=== PATIENT | male | born 1990 | race Caucasian/White ===

== ENCOUNTER 2018-07-31 12:55 | Inpatient (IN) ==
--- NOTE | 2018-07-31 15:09 | P.PNPSY ---
This serves as a mlom-of-qlud for restraints. Patient is seen at 1315. This patient who presents as a Glenn King was seen at the request of RN while in the process of being registered. He is here under a police initiated Kay act. Patient is agitated, talking in a nonsensical manner, able to answer questions when he is asked to do so, making threatening gestures with his hands. It is felt that the patient is a threat to others and therefore restraints are ordered. Unable to proceed with psychiatric evaluation at this time.
--- NOTE | 2018-07-31 16:36 | P.PNPSY ---
Patient remains in restraints. he was uncooperative with letting staff obtain labwork and was spitting at RN. When I attempted to interview him he staes " are you the creator?". He then begins to speak in nonsensical manner. He becomes angry and verbally threatening towards data analyst report writer. He did give his name as Rajat Marcus and admits to having used " tobacco " today. Agnieszkan requires medication at this time for threatening behavior as well as psychosis.
--- NOTE | 2018-07-31 17:30 | ED ---
HPI General Chief complaint: Psychiatric Symptoms Stated complaint: Psych Eval/OBPD Time Seen by Provider: 07/31/18 17:13 History of Present Illness HPI narrative: Male is brought to the emergency department under Kay act for psychiatric evaluation. Patient is brought in as a Glenn Malik, appears approximately 32 years old. Patient initially noted to be psychotic and aggressive with staff, he was placed in restraints prior to my evaluation and given medication by the psychologist military personnel. Patient is now calm. He states his name is Rajat Marcus. He does not answer my question when I asked him what happened today. He states he is aware he is somewhere in [place]. He states he is not sure what year it is. He denies any medical conditions. When I continue questioning he becomes irritated and states "can you leave me alone and unleashed me and give me some food now." Related Data Home Medications Medication Instructions Recorded Confirmed No Known Home Medications 07/31/18 07/31/18 Allergies Allergy/AdvReac Type Severity Reaction Status Date / Time No Known Allergies Allergy Verified 07/31/18 14:29 Review of Systems ROS: all other systems reviewed are negative [facility] Social History Social History Substance History: Unable to Obtain Smoking Status: Refused to answer How Often Do You Have a Drink Containing Alcohol: Unable to Obtain Recent Travel in [facility] within the Last 8 Weeks: No Recent Out of Country Travel within the Last 8 Weeks: No Immunization History Tetanus Immunization: Unsure Exam Narrative Exam Narrative: GENERAL: Well-nourished and well-developed male patient in no acute distress. Restrained to bed with left arm and right leg. SKIN: Warm and dry without any obvious rashes or lesions. HEAD: Normocephalic and atraumatic. EYES: No injection, drainage, or hyphema noted. PERRLA. EOMI. ENT: No nasal drainage noted. Oropharynx is clear and the TMs are normal with good landmarks. NECK: Supple and the trachea is midline. CARDIOVASCULAR: Regular rate and rhythm. RESPIRATORY: Breath sounds are equal bilaterally with no accessory muscle use, wheezing, rhonchi, or crackles. GASTROINTESTINAL: Abdomen is soft, non-tender, and nondistended. MUSCULOSKELETAL: No obvious deformities, swelling, cyanosis, or ecchymosis is present throughout the upper and lower extremities. Patient has full range of motion without any signs of neurovascular compromise. Distal pulses are 2+ throughout. NEUROLOGICAL: Awake, alert, and oriented to person and place. Normal speech and gait. Cranial nerves are grossly intact. Course Initial Documented Vital Signs Pulse Rate 76 07/31/18 13:07 Respiratory Rate 20 07/31/18 13:07 Blood Pressure 137/90 07/31/18 13:07 Pulse Oximetry 99 07/31/18 13:07 Last Documented Vital Signs Temperature 97.0 F L 07/31/18 18:08 Pulse Rate 80 07/31/18 18:08 Respiratory Rate 18 07/31/18 18:08 Blood Pressure 142/83 H 07/31/18 18:08 Pulse Oximetry 99 07/31/18 18:08 Medical Decision Making MDM Narrative Medical decision making narrative: Patient presents under a Kay act for psychotic behavior. Patient is somewhat altered, unclear whether this is due to psychosis or drug use or other metabolic illness. Vitals are within normal limits. Will check head CT and lab work. Psych screen has been ordered. Labs are unremarkable as well as head CT. Urine tox is pending. The patient is medically cleared for psychiatric evaluation and disposition. Medical Screen Exam Complete: Yes Emergency Medical Condition: Yes Differential Diagnosis Differential Diagnosis: Differential: Depression versus adjustment reaction versus anxiety versus PTSD versus psychosis NOS versus mood disorder NOS versus substance induced mood disorder versus ODD versus adjustment reaction versus schizophrenia versus bipolar disorder versus schizoaffective versus electrolyte abnormality versus dementia versus malingering. Lab Data Result diagrams: 07/31/18 16:50 07/31/18 16:50 Lab Results 07/31/18 07/31/18 07/31/18 Range/Units 16:50 16:50 18:30 WBC 8.9 (4.0-11.0) th/mm3 RBC 4.84 (4.50-5.90) mil/mm3 Hgb 15.3 (13.0-17.0) gm/dL Hct 42.9 (39.0-51.0) % MCV 88.7 (80.0-100.0) fL MCH 31.7 (27.0-34.0) pg MCHC 35.7 (32.0-36.0) % RDW 13.4 (11.6-17.2) % Plt Count 162 (150-450) th/mm3 MPV 10.8 (7.0-11.0) fL Sodium 144 (136-145) meq/L Potassium 4.4 (3.5-5.1) meq/L Chloride 112 H (98-107) meq/L Carbon Dioxide 27.4 (21.0-32.0) meq/L Anion Gap 5 (5-15) meq/L BUN 12 (7-18) mg/dL Creatinine 0.83 (0.60-1.30) mg/dL Estimated GFR 80 L (>89) mL/min Random Glucose 81 (74-106) mg/dL Calcium 8.7 (8.5-10.1) mg/dL Total Bilirubin 0.6 (0.2-1.0) mg/dL AST 14 L (15-37) U/L ALT 24 (12-78) U/L Alkaline Phosphatase 76 (45-117) U/L Total Protein 6.6 (6.4-8.2) g/dL Albumin 3.8 (3.4-5.0) g/dL Urine Color (Yellw/Straw) Urine Clarity (Clear) Urine pH (5.0-8.5) Ur Specific [place] (1.002-1.035) Urine Protein (Neg-Trace) mg/dL Urine Glucose (UA) (Negative) mg/dL Urine Ketones (Negative) mg/dL Urine Occult Blood (Negative) Urine Nitrate (Negative) Urine Bilirubin (Negative) Urine Urobilinogen (Less than 2) mg/dL Ur Leukocyte Esterase (Negative) Urine RBC (0-3) /hpf Urine WBC (0-5) /hpf Urine Mucus (Occasional) /lpf Micro UA Comment Ur Microscopic Review Urine Culture Comments Urine Opiates Screen Neg (Neg) Ur Barbiturates Screen Neg (Neg) Ur Amphetamines Screen Neg (Neg) U Benzodiazepines Scrn Neg (Neg) Urine Cocaine Screen Neg (Neg) U Cannabinoids Screen Pos H (Neg) Serum Alcohol Less than 3 (0-5) mg/dL 07/31/18 Range/Units 18:30 WBC (4.0-11.0) th/mm3 RBC (4.50-5.90) mil/mm3 Hgb (13.0-17.0) gm/dL Hct (39.0-51.0) % MCV (80.0-100.0) fL MCH (27.0-34.0) pg MCHC (32.0-36.0) % RDW (11.6-17.2) % Plt Count (150-450) th/mm3 MPV (7.0-11.0) fL Sodium (136-145) meq/L Potassium (3.5-5.1) meq/L Chloride (98-107) meq/L Carbon Dioxide (21.0-32.0) meq/L Anion Gap (5-15) meq/L BUN (7-18) mg/dL Creatinine (0.60-1.30) mg/dL Estimated GFR (>89) mL/min Random Glucose (74-106) mg/dL Calcium (8.5-10.1) mg/dL Total Bilirubin (0.2-1.0) mg/dL AST (15-37) U/L ALT (12-78) U/L Alkaline Phosphatase (45-117) U/L Total Protein (6.4-8.2) g/dL Albumin (3.4-5.0) g/dL Urine Color Yellow (Yellw/Straw) Urine Clarity Clear (Clear) Urine pH 6.0 (5.0-8.5) Ur Specific [place] 1.011 (1.002-1.035) Urine Protein Negative (Neg-Trace) mg/dL Urine Glucose (UA) Negative (Negative) mg/dL Urine Ketones Trace H (Negative) mg/dL Urine Occult Blood Negative (Negative) Urine Nitrate Negative (Negative) Urine Bilirubin Negative (Negative) Urine Urobilinogen Less than 2 (Less than 2) mg/dL Ur Leukocyte Esterase Negative (Negative) Urine RBC Less than 1 (0-3) /hpf Urine WBC 1 (0-5) /hpf Urine Mucus Few H (Occasional) /lpf Micro UA Comment Culture not ind Ur Microscopic Review Not Reportable Urine Culture Comments Culture not ind Urine Opiates Screen (Neg) Ur Barbiturates Screen (Neg) Ur Amphetamines Screen (Neg) U Benzodiazepines Scrn (Neg) Urine Cocaine Screen (Neg) U Cannabinoids Screen (Neg) Serum Alcohol (0-5) mg/dL Imaging Data Radiologist's impression: Head CT 07/31/18 17:30 CONCLUSION: No acute intracranial findings. . Discharge Plan Discharge Disposition Patient Disposition: Sign Out(ED Internal Use Only) Discharge Details Diagnosis: Acute psychosis Physicians Team ED Provider: Kamar Morrow ED Midlevel Provider: Sabiha Newman Primary Care Provider: UNKNOWN, Rxs /Orders / Referrals /Forms Prescriptions: No Action No Known Home Medications RF: 0 Status ED Status: Medically Cleared
[2018-07-31 17:42] LABS: Hematocrit 42.9 % (39.0-51.0); Hemoglobin 15.3 gm/dL (13.0-17.0); Mean Corpuscular HGB Conc 35.7 % (32.0-36.0); Mean Corpuscular Hemoglobin 31.7 pg (27.0-34.0); Mean Corpuscular Volume 88.7 fL (80.0-100.0); Mean Platelet Volume 10.8 fL (7.0-11.0); Platelet Count 162 th/mm3 (150-450); Red Blood Count 4.84 mil/mm3 (4.50-5.90); Red Cell Distribution Width 13.4 % (11.6-17.2); White Blood Count 8.9 th/mm3 (4.0-11.0)
[2018-07-31 17:59] LABS: Alanine Aminotransferase 24 U/L (12-78); Albumin 3.8 g/dL (3.4-5.0); Anion Gap 5 meq/L (5-15); Aspartate Aminotransferase 14 U/L (15-37); Blood Urea Nitrogen 12 mg/dL (7-18); Calcium 8.7 mg/dL (8.5-10.1); Carbon Dioxide 27.4 meq/L (21.0-32.0); Chloride 112 meq/L (98-107); Glomerular Filtration Rate 80 mL/min (>89); Glucose,Random 81 mg/dL (74-106); Potassium 4.4 meq/L (3.5-5.1); Sodium 144 meq/L (136-145)
[2018-07-31 18:02] LABS: Alkaline Phosphatase 76 U/L (45-117); Total Protein 6.6 g/dL (6.4-8.2)
--- NOTE | 2018-07-31 18:25 | CT ---
EXAM DATE: 07/31/2018 6:21 PM EST AGE/SEX: 89 years / Male INDICATIONS: Altered mental status. CLINICAL DATA: This is the patient's initial encounter. Patient reports that signs and symptoms have been present for 1 day and indicates a pain score of Nonresponsive. MEDICAL/SURGICAL HISTORY: None. None. RADIATION DOSE: 46.51 CTDI (mGy) COMPARISON: No prior exams available for comparison. TECHNIQUE: CT of the head without contrast. Using automated exposure control and adjustment of the mA and/or kV according to patient size, radiation dose was kept as low as reasonably achievable to ob tain optimal diagnostic quality images. DICOM format image data is available electronically for revi ew and comparison. FINDINGS: Cerebrum: The ventricles are normal for age. No evidence of midline shift, mass lesion, hemorrhage or acute infarction. No extraaxial fluid collections are seen. Posterior Fossa: The cerebellum and brainstem are intact. The 4th ventricle is midline. The cerebe llopontine angle is unremarkable. Extracranial: The visualized portion of the orbits is intact. Skull: The calvaria is intact. No evidence of skull fracture. CONCLUSION: No acute intracranial findings. . Electronically signed by: Ibrahima Tucker MD Board Certified Radiologist 07/31/2018 6:24 PM EST
[2018-07-31 18:51] LABS: Bilirubin,Urine Negative (Negative); Clarity,Urine Clear (Clear); Color,Urine Yellow (Yellw/Straw); Glucose,Urine (UA) Negative (Negative); Leukocyte Esterase,Urine Negative (Negative); Mucus,Urine Few /lpf (Occasional); Nitrite,Urine Negative (Negative); Specific Gravity,Urine 1.011 (1.002-1.035)
[2018-07-31 18:55] LABS: Amphetamine Screen,Urine Neg (Neg); Barbiturate Screen,Urine Neg (Neg); Cannabinoid Screen,Urine Pos (Neg); Cocaine Screen,Urine Neg (Neg)
[2018-07-31 18:56] LABS: Opiate Screen,Urine Neg (Neg)
[2018-08-01] MEDS ORDERED: Aluminum/Magnesium/Simethacone Susp 30 ML UDC PO PRN (11:33)
[2018-08-01] MEDS ORDERED: Acetaminophen 325 MG Tablet PO PRN (11:33)
--- NOTE | 2018-08-01 11:56 | P.HPPSY ---
Provisional Diagnosis Admission Date: July 31, 2018 12:55 [place] I.: Psychotic disorder, marijuana abuse Competence Certification of Person's Competence To Provide Express and Informed Consent I have personally examined Glenn Tai, a person being served at [facility] on, August 01, 2018 1141. Express and informed consent means consent voluntarily given in writing, by a competent person, after sufficient explanation and disclosure of the subject matter involved to enable the person to make a knowing and willful decision without any element of force, fraud, deceit, duress, or other form of constraint or coercion. This person is 18 years of age or older, is not now known to be incompetent to consent to treatment with a guardian advocate, and does not have a health care surrogate or proxy currently making medical treatment decisions. I have found this person to be one of the following: [] Competent to provide express and informed consent, as defined above, for voluntary admission to this facility and is competent to provide express and informed consent for treatment. He/she has the consistent capacity to make well reasoned, willful, and knowing decisions concerning his or her medical or mental health treatment. The person fully and consistently understands the purpose of the admission for examination/placement and is fully capable of personally exercising all rights assured [place] [] Incompetent to provide express and informed consent to voluntary admission, and this is incompetent to provide express and informed consent to treatment. The person must be transferred to involuntary status and a petition for a guardian advocate filed with the Circuit Court. [xxx] Refusing to provide express and informed consent to voluntary admission but is competent to provide express and informed consent for treatment. The person must be discharged or transferred to involuntary status. Form shall be completed within 24 hours of a person's arrival at the receiving facility and filed in the clinical record of each person: 1. Admitted on a voluntary basis 2. Permitted to provide express and informed consent to his/her own treatment 3. Allowed to transfer from involuntary to voluntary status 4. Prior to permitting a person to consent to his or her own treatment after having been previously found incompetent to consent to treatment. History of Present Illness Capacity: Lacks capacity (Patient lacks capacity to sign for admission patient has capacity to sign for medication treatment) History of Present Illness: Patient is a 32-year-old white male comes here is a Glenn cipriano and 184 under Kay act by the [place] [employer] dated 07/31/2018 at 12:30 PM that document reviewed states Glenn magdaleno walked into [place] and told the judge's clerk he was going to blow her head off. Glenn though then told another officer he was going to punch her. Then he was going to kill people. Glenn though then stated he is a God. Patient is seen and screened in the ED urine toxicology only positive for marijuana while in the ED patient needed to be in restraints to his out of control behavior to the point where he was spitting at the nurses. Patient is seen by me and Clarence santillan along with nurse Ngozi and floor staff. He is labile irritable angry and profane quite manipulative and entitled. Showing no responsibility for behavior or verbalizations done in the community. He is quite vague and evasive about past psychiatric history Shannan does acknowledge a prior psychiatric history out of the [facility]. He is vague about other travel she may have had in his life including to [place]. He acknowledges marijuana use but refuses to discuss any other chemical use though his toxicology was only positive for marijuana there may have been some other type of game designer/creative director drug use involved with this gentleman. He denies to give any information related to family history legal history other past psychiatric history. However at this time patient does meet criteria for further inpatient psychiatric hospitalization under the Kay act I feel there is a high risk of this man becoming violent he is quite threatening and labile with us and myself telling me to "fuck off" thus I will do first opinion request second opinion. Will refrain from any psychotropic medication at the present time refrain from benzodiazepines or opiates if at all possible and observe to see if there is might be some resolution of this if there is substances involved Review of Systems unobtainable due to mental status PMFSH - History History Provided By: Patient - Medical / Surgical Hx Neg / Unobtainable Medical Problems Denied: Unable to Obtain Surgical History: Unable to Obtain - Medical History Medical History: Medical History (Last Reviewed 08/01/18 @ 11:49 by Glenn Sevilla MD) Patient denies medical problems Surgical history unknown - Social History I have reviewed the patient's Social History: No - Tobacco History Smoking Status: Refused to answer - Alcohol History How Often Do You Have a Drink Containing Alcohol: Unable to Obtain - Substance Use History Substance History: Unable to Obtain - Travel History Recent Travel in the [place] Within the Last 8 Weeks: No Recent Travel Out of the Country Within the Last 8 Weeks: No - Immunization History Tetanus Immunization: Unsure Quality Measures - Psychiatric History Psychological trauma history: Patient refusing to answer questions Violence risk to others in the last 6 months: Patient made violent aggressive gestures and community and at staff and ED Violence risk to self in the last 6 months: Patient vaguely denies - Substance Abuse History Drug or alcohol use in the past 12 months: Patient positive for marijuana possibly under the influence of game designer/creative director drug - Patient Strengths Patient's strengths (minimum of 2): Patient verbal able [facility] Medications and Allergies Active Medications: Active Medications Acetaminophen (Tylenol) 650 mg PO Q4H PRN PRN Reason: Pain 1-5 or Temp >101F Al Hydrox/Mg Hydrox/Simethicone (Mag-Al Plus Susp Liq) 30 ml PO Q6H PRN PRN Reason: DYSPEPSIA Al Hydroxide/Mg Hydroxide (Milk Of Magnesia Liq) 30 ml PO Q12H PRN PRN Reason: Mild Constipation Diphenhydramine HCl (Benadryl) 50 mg PO HS PRN PRN Reason: INSOMNIA Hydroxyzine HCl (Atarax) 50 mg PO Q6H PRN PRN Reason: ANXIETY Allergies Allergy/AdvReac Type Severity Reaction Status Date / Time No Known Allergies Allergy Verified 07/31/18 14:29 Home Medications Medication Instructions Recorded Confirmed Type No Known Home Medications 07/31/18 07/31/18 History Results - Labs CBC & Chem 7: 07/31/18 16:50 07/31/18 16:50 Labs: Laboratory Results - last 24 hr 07/31/18 07/31/18 07/31/18 16:50 16:50 18:30 WBC 8.9 RBC 4.84 Hgb 15.3 Hct 42.9 MCV 88.7 MCH 31.7 MCHC 35.7 RDW 13.4 Plt Count 162 MPV 10.8 Sodium 144 Potassium 4.4 Chloride 112 H Carbon Dioxide 27.4 Anion Gap 5 BUN 12 Creatinine 0.83 Estimated GFR 80 L Random Glucose 81 Calcium 8.7 Total Bilirubin 0.6 AST 14 L ALT 24 Alkaline Phosphatase 76 Total Protein 6.6 Albumin 3.8 Urine Color Urine Clarity Urine pH Ur Specific [place] Urine Protein Urine Glucose (UA) Urine Ketones Urine Occult Blood Urine Nitrate Urine Bilirubin Urine Urobilinogen Ur Leukocyte Esterase Urine RBC Urine WBC Urine Mucus Micro UA Comment Ur Microscopic Review Urine Culture Comments Urine Opiates Screen Neg Ur Barbiturates Screen Neg Ur Amphetamines Screen Neg U Benzodiazepines Scrn Neg Urine Cocaine Screen Neg U Cannabinoids Screen Pos H Serum Alcohol Less than 3 07/31/18 18:30 WBC RBC Hgb Hct MCV MCH MCHC RDW Plt Count MPV Sodium Potassium Chloride Carbon Dioxide Anion Gap BUN Creatinine Estimated GFR Random Glucose Calcium Total Bilirubin AST ALT Alkaline Phosphatase Total Protein Albumin Urine Color Yellow Urine Clarity Clear Urine pH 6.0 Ur Specific [place] 1.011 Urine Protein Negative Urine Glucose (UA) Negative Urine Ketones Trace H Urine Occult Blood Negative Urine Nitrate Negative Urine Bilirubin Negative Urine Urobilinogen Less than 2 Ur Leukocyte Esterase Negative Urine RBC Less than 1 Urine WBC 1 Urine Mucus Few H Micro UA Comment Culture not ind Ur Microscopic Review Not Reportable Urine Culture Comments Culture not ind Urine Opiates Screen Ur Barbiturates Screen Ur Amphetamines Screen U Benzodiazepines Scrn Urine Cocaine Screen U Cannabinoids Screen Serum Alcohol - Imaging Impressions Head CT 07/31/18 17:30 CONCLUSION: No acute intracranial findings. . Exam Vital signs: Vital Signs 07/31/18 13:07 07/31/18 14:31 07/31/18 15:23 Temperature 98 F Pulse Rate 76 76 74 Respiratory Rate 20 20 18 Blood Pressure 137/90 137/90 132/76 Pulse Oximetry 99 99 100 07/31/18 18:08 08/01/18 00:01 Temperature 97.0 F L 98.6 F Pulse Rate 80 59 L Respiratory Rate 18 18 Blood Pressure 142/83 H 106/63 Pulse Oximetry 99 99 Intake & Output 07/31/18 08/01/18 08/01/18 18:59 06:59 18:59 Weight 68.039 kg Narrative: Patient sitting on the edge of bed and J pod nurse Gerda floor staff also present he has angry irritable demanding manipulative and entitled. He but he is in no acute physical distress no complaints or chest pain or abdominal pain. Patient moving all 4 extremities without difficulty Mental Status Examination Appearance: Disheveled Consciousness: Alert Orientation: Person, Place Motor Activity: Normal gait Speech: Pressured, Rapid Language: Adequate Fund of Knowledge: Adequate Attention and Concentration: Adequate (Fair) Memory: Impaired Mood: Angry, Oppositional, Irritable, Other (Manipulative and entitled) Affect: Other (Increased range and intensity) Thought Process & Associations: Loose associations Thought Content: Other (Disorganized) Hallucination Type: None (Denies) Delusion Type: Paranoid Suicidal Ideation: No Suicidal Plan: No Suicidal Intention: No Homicidal Ideation: No Homicidal Plan: No Homicidal Intention: No Insight: Poor Judgment: Poor Assessment and Plan - Assessment (1) Psychotic disorder Code(s): F29 - Unspecified psychosis not due to a substance or known physiological condition Status: Acute (2) Marijuana abuse Code(s): F12.10 - Cannabis abuse, uncomplicated Status: Acute - Plan Plan: Estimated LOS: [] days Patient quite disorganized psychotic paranoid manipulative and entitled giving no information freely. At this time he does not meet criteria for further involuntary psychiatric hospitalization of the Kay act thus I will do first opinion request second opinion I feel he may have capacity to sign for medications and treatment. Will refrain from any psychotropics at this time unless his behaviors demented they may be a component of game designer/creative director drugs involved with this Justification for Continued Inpatient Stay: At this time patient with decompensated placed in a lower level of care Discharge Planning: To be determined Request Healthcare Surrogate/Guardian Advocate?: No
[2018-08-01] MEDS ORDERED: Haloperidol Inj 5 MG/ML Ampul IM STA (12:12)
--- NOTE | 2018-08-02 12:09 | P.PNPSY ---
Subjective Chief Complaint: Follow-up for symptoms of psychosis Remarks: Patient seen for follow-up, chart reviewed, patient discussed with nursing staff ; we reviewed the patient's mood, thoughts, and behaviors from overnight and this morning. Nurse reports the patient has been uncooperative with nursing assessments due to hostile and verbally aggressive behaviors. Patient had to be placed in the quiet room for his aggression at 0530 this morning but no ETO' s since yesterday at 12:47 PM. Patient was seen this morning sitting in the day room eating snacks. Patient was asked if he would like to go to a private room for his interview and he declined in preference for remaining in the dayroom. Patient was hostile and guarded and repeatedly insisted that he did not need to be in the hospital and he wanted to be discharged immediately. The patient was only minimally cooperative with questioning. He did acknowledge that he has been Kay acted multiple times and treated with emergency treatment orders but he denies ever continuing medication as an outpatient and he denies any outpatient mental health follow-up. He reports that he is from [place] however he does have an [place] accent that he goes in and out of. Patient reports he still has family living in [place] but they are not supportive and he considers himself on his own and homeless. Patient cannot recall how he ended up in the [place]. The patient admits to using marijuana but denies abusing alcohol or other illegal drugs. The patient made it clear that he did not want to be treated with any medications and would like to be discharged as soon as possible. Patient was asked about discharge plans and whether or not he needed assistance getting back to [place] or with halfway and he became angry with the questioning and ended the interview. Mental Status Examination Appearance: Disheveled Consciousness: Alert Orientation: Person, Place Motor Activity: Normal gait Speech: Unremarkable Language: Adequate Fund of Knowledge: Adequate Attention and Concentration: Easily distracted Memory: Impaired Mood: Angry, Oppositional, Irritable, Other (Manipulative and entitled) Affect: Irritable Thought Process & Associations: Disorganized Thought Content: Other (None elicited) Hallucination Type: None (Denies) Delusion Type: Paranoid Suicidal Ideation: No Suicidal Plan: No Suicidal Intention: No Homicidal Ideation: No Homicidal Plan: No Homicidal Intention: No Insight: Poor Judgment: Poor Assessment and Plan - Assessment (1) Psychotic disorder Code(s): F29 - Unspecified psychosis not due to a substance or known physiological condition Status: Acute (2) Marijuana abuse Code(s): F12.10 - Cannabis abuse, uncomplicated Status: Acute - Plan Plan: 08/01/2018: Initial assessment and plan Patient quite disorganized psychotic paranoid manipulative and entitled giving no information freely. At this time he does meet criteria for further involuntary psychiatric hospitalization of the Kay act thus I will do first opinion request second opinion I feel he may have capacity to sign for medications and treatment. Will refrain from any psychotropics at this time unless his behaviors demented they may be a component of circuit designer drugs involved with this 08/02/2018: Unsatisfactory response to inpatient treatment; patient remains hostile guarded and verbally aggressive with staff and uncooperative with discharge planning. Patient will require further observation and possible treatment before risks of harm to self or others have been adequately mitigated. Continue inpatient observation under the Kay act. Second opinion completed and filed in the chart. The patient refuses discussions about medications therefore symptoms of psychosis and aggression will need to be addressed through emergency treatment orders as indicated. Discharge planning: The patient claims to be homeless and from [place] may likely need transportation back to [place] and referrals for shelters. Justification for Continued Inpatient Stay: Patient remains an elevated risk for self-harm by self neglect and risk to harm others through his aggressive and hostile behavior and therefore will require further inpatient stabilization and preparation of a safe discharge plan. Moving patient to a less restrictive environment at this time may result in decompensation. Request Healthcare Surrogate/Guardian Advocate?: No
[2018-08-03 05:38] VITALS: BP 120/62; PULSE 112; RESP 17; TEMP 98.3; O2SAT 98
--- NOTE | 2018-08-03 08:42 | P.TTN ---
- Patient Problems Problems: 1. Discharge planning 2. Medication compliance 3. Knowledge deficit 4. Lack of coping skills - Progress Toward Goals Provider Present: Other Provider Input: 08/03/18 per MD pt is getting ready to be d/c since he is not getting any treatment and refuses meds. Nurse Input: 08/03/18 Per RN pt is guarded and has been isolating in his bedroom. Psychiatric Counselors Present: Other Psychiatric Therapist Input: 08/03/18 Therapist has attempted to engage pt with d/ c planning and pt has been beligerant and guarded. Will f/u w/pt today. Group Spec/RT/OT/ARGUELLO Present: Bruce Lal OT Group Spec/RT/OT/ARGUELLO Input: 08/03/18 Pt has not been attending [facility]. - Documentation Teaching Recipient: Patient
--- NOTE | 2018-08-03 12:02 | P.DSPSY ---
Psychiatry Discharge Summary Inpatient Psychiatric care?: Yes Advance Directives: No Reason for Unknown:: Due to Patient Condition Mental Health Advance Directive: No Health Care Proxy: No - Admission Admission Date: August 01, 2018 15:01 - Admission Diagnosis (1) Acute psychosis Code(s): F23 - Brief psychotic disorder (2) Marijuana abuse Code(s): F12.10 - Cannabis abuse, uncomplicated Brief History: Patient is a 32-year-old white male comes here is a Glenn cipriano and 89 under Kay act by the [place] [employer] dated 07/31/2018 at 12:30 PM that document reviewed states Glenn magdaleno walked into [employer] and told the personnel records clerk he was going to blow her head off. lGenn though then told another officer he was going to punch her. Then he was going to kill people. Glenn though then stated he is a God. Patient is seen and screened in the ED urine toxicology only positive for marijuana while in the ED patient needed to be in restraints to his out of control behavior to the point where he was spitting at the nurses. Patient is seen by and Clarence santillan along with nurse Ngozi and floor staff. He is labile irritable angry and profane quite manipulative and entitled. Showing no responsibility for behavior or verbalizations done in the community. He is quite vague and evasive about past psychiatric history Shannan does acknowledge a prior psychiatric history out of the [facility]. He is vague about other travel she may have had in his life including to [place]. He acknowledges marijuana use but refuses to discuss any other chemical use though his toxicology was only positive for marijuana there may have been some other type of fashion designer drug use involved with this gentleman. He denies to give any information related to family history legal history other past psychiatric history. However at this time patient does meet criteria for further inpatient psychiatric hospitalization under the Kay act I feel there is a high risk of this man becoming violent he is quite threatening and labile with us and myself telling me to "fuck off" thus I will do first opinion request second opinion. Will refrain from any psychotropic medication at the present time refrain from benzodiazepines or opiates if at all possible and observe to see if there is might be some resolution of this if there is substances involved Tobacco Use In Past 30 Days: Yes How Often Do You Have a Drink Containing Alcohol: Never Hospital Course: 08/01/2018: Initial assessment and plan Patient quite disorganized psychotic paranoid manipulative and entitled giving no information freely. At this time he does meet criteria for further involuntary psychiatric hospitalization of the Kay act thus I will do first opinion request second opinion I feel he may have capacity to sign for medications and treatment. Will refrain from any psychotropics at this time unless his behaviors demented they may be a component of fashion designer drugs involved with this 08/02/2018: Unsatisfactory response to inpatient treatment; patient remains hostile guarded and verbally aggressive with staff and uncooperative with discharge planning. Patient will require further observation and possible treatment before risks of harm to self or others have been adequately mitigated. Continue inpatient observation under the Kay act. Second opinion completed and filed in the chart. The patient refuses discussions about medications therefore symptoms of psychosis and aggression will need to be addressed through emergency treatment orders as indicated. Discharge planning: The patient claims to be homeless and from [place] may likely need transportation back to [place] and referrals for shelters. 08/03/2018: Patient was seen and examined on the unit by psychiatry and also visited by counselor. Patient continues to decline discussions about psychotropic medications to treat mood anxiety and thought disorder. There was a fair response to inpatient treatment plan noted by nursing and provider observations, and the patient has not required emergency treatment order in over 48 hours. There was no evidence of any suicidality or homicidality at time of discharge. Psychiatric follow-up as arranged by counselor. I have counseled the patient to abstain from substances of abuse including cannabis and have counseled patient to return to the psychiatric emergency room for any concerning symptoms as part of a general safety plan. - Discharge Discharge Date: 08/03/18 - Discharge Diagnosis (1) Acute psychosis Code(s): F23 - Brief psychotic disorder Status: Acute (2) Marijuana abuse Code(s): F12.10 - Cannabis abuse, uncomplicated Status: Acute Discharge Disposition: Detention - Discharge Time > 30 minutes Mental Status Examination Appearance: Disheveled Consciousness: Alert Orientation: x4 Motor Activity: Normal gait Speech: Unremarkable Language: Adequate Fund of Knowledge: Adequate Attention and Concentration: Adequate Memory: Unremarkable Mood: Oppositional, Irritable Affect: Blunt Thought Process & Associations: Intact, Logical, Goal directed Thought Content: Appropriate Hallucination Type: None (Denies) Delusion Type: None (remains guarded) Suicidal Ideation: No Suicidal Plan: No Suicidal Intention: No Homicidal Ideation: No Homicidal Plan: No Homicidal Intention: No Insight: Fair Judgment: Impulsive Discharge/Advance Care Plan - Results Vital Signs: Last Vital Signs Temp 98.3 F 08/03/18 05:37 Pulse 112 H 08/03/18 05:37 Resp 17 08/03/18 05:37 BP 120/62 08/03/18 05:37 Pulse Ox 98 08/03/18 05:37 Lab Results: Laboratory Results Urine Culture Comments Culture not ind 07/31/18 18:30 Summary of Procedures: None ordered Imaging: ITS Impressions Head CT 07/31/18 17:30 CONCLUSION: No acute intracranial findings. . Pending Results: None - Medications Number of antipsychotic medications at discharge: 0 - Discharge Care Plan Goals to Promote Your Health: * To prevent worsening of your condition and complications * To maintain your health at the optimal level Directions to Meet Your Goals: Take your medications as prescribed Follow your dietary instruction Follow activity as directed Keep your appointments as scheduled Take your immunizations and boosters as scheduled If your symptoms worsen call your PCP, if no PCP go to Urgent Care Center or Emergency Room For 16/02 questions related to your inpatient stay or results of tests pending at discharge, please contact Dr. Gustavo Rowe MD at Smoking is Dangerous to Your Health. Avoid second hand smoking
== END 2018-08-03 10:05 | disposition home or self-care (01) | DRG 885 ==
LOC: NEPJ 12:55 → NEDA 08-01 15:01 → EDBD 08-01 15:01 → H270 08-01 15:12
PROVIDERS: ADMIT Psychiatry & Neurology Psychiatry; ATTEND Psychiatry & Neurology Psychiatry
CPT/HCPCS: 70450; 80053; 80307; 81001; 85027; 99285; C9204; J1200; J1630; J2060; J3486